=== PATIENT | female | born 1960 | race Caucasian/White ===

== ENCOUNTER → 2016-08-19 | Outpatient (CLI) | payer BC ==
[~2016-08-19] MED LIST: CALCIUM; LEVOTHYROXINE; VITAMIN D
== END | disposition home or self-care (01) ==
LOC: MRI 09:34
PROVIDERS: ATTEND Family Medicine
DX: R51 Headache (principal)
CPT/HCPCS: 70551

== ENCOUNTER → 2021-05-05 | Outpatient (CLI) | payer SELFPAY ==
[2021-05-05 15:15] LABS: BASOPHILS % 0.9 % (0.0-2.0); HEMATOCRIT. 35.3 % (36.0-48.0); HEMOGLOBIN. 12.2 g/dL (12.0-16.0); LYMPHOCYTES % 43.2 % (20.0-50.0); MEAN CORPUSCULAR HEMOGLOBIN 30.5 pg (28.0-32.0); MEAN CORPUSCULAR VOLUME 88.2 fL (81.0-99.0); MEAN PLATELET VOLUME 6.7 fl (7.4-10.4); MONOCYTES % 13.1 % (2.0-8.0); NEUTROPHILS % 36.8 % (40.0-76.0); PLATELET 277 x1000/uL (130-400); RED BLOOD CELL COUNT 4.01 mill/uL (4.2-5.4); RED CELL DISTRIBUTION WIDTH 13.5 % (11.6-14.6)
[2021-05-05 15:32] LABS: CHLORIDE 105 mEq/L (98-107)
[2021-05-05 15:42] LABS: HDL CHOLESTEROL 75 mg/dL (40-59); LDL CHOLESTEROL 73 mg/dL (5-100)
[2021-05-05 15:44] LABS: T4 FREE 1.41 ng/dL (0.76-1.46)
== END | disposition home or self-care (01) ==
LOC: LAB 14:44
DX: E55.9 Vitamin D deficiency, unspecified (principal)
CPT/HCPCS: 36415; 80053; 80061; 82306; 84439; 84443; 85025